=== PATIENT | male | born 1930 | race Caucasian/White ===

== ENCOUNTER → 2017-04-03 | Outpatient (CLI) | payer MEDICARE, OTHER ==
[~2017-04-03] MED LIST: ACET600C6 PO; ALBU18HF INH; ATOR20TA9 PO; CHOL100012 PO; CHRO200T2 PO; CRAN500T2 PO; FLAX1000 PO; FLUT1DIS3 INH; GLUC-149 PO; LACT1CAP35 PO; MAGN400C PO; METH500C3 TP; MILK500C PO; NEBI10TA3 PO; NETTLE PO; OLME1TAB34 PO; POTA10TA31 PO; QUERCETIN PO; TURM1POW2 PO; UBID100C24 PO; VIT1TABL32 PO; VITA100T4 PO; VITA150T PO; [UNRECOGNIZED DRUG - CODE] PO
[2017-04-03 16:22] LABS: MEAN CORPUSCULAR HEMOGLOBIN 29.9 pg (27.5-34.5); MEAN CORPUSCULAR VOLUME 90.6 fL (81-97); MEAN PLATELET VOLUME 8.1 fL (7.4-10.4); PLATELET COUNT 246 x10^3/uL (130-400); RED BLOOD COUNT 4.85 x10^6/uL (4.38-5.82); RED CELL DISTRIBUTION WIDTH 16.1 % (9.4-14.8)
[2017-04-03 16:28] LABS: MICROSCOPIC AUTO
[2017-04-03 16:30] LABS: ANION GAP 8 mmol/L (5-15); CALCIUM 9.5 mg/dL (8.5-10.1); CHLORIDE 104 mmol/L (98-107); CREATININE 0.84 mg/dL (0.7-1.3)
[2017-04-03 16:31] LABS: CULTURE INDICATED? NO
[2017-04-03 18:48] LABS: MD YES
[2017-04-03 18:54] LABS: EOS#(MANUAL) 0.13 x10^3/uL (0.0-0.4); EOS% (MANUAL) 1 % (1-7); LYMPHS% (MANUAL) 31 % (22-44); MONOS#(MANUAL) 0.52 x10^3/uL (0.3-2.7); MONOS% (MANUAL) 4 % (2-9); REACTIVE LYMPHS # (MANUAL) 1.29 x10^3/uL (0-0); REACTIVE LYMPHS % (MANUAL) 10 % (0-0); SEG#(MANUAL) 4.13 x10^3/uL (1.8-6.8); SEGS% (MANUAL) 32 % (42-75)
[2017-04-03 18:56] LABS: OTHER CELLS # (MANUAL) 2.84 x10^3/uL (0-0); OTHER CELLS % (MANUAL) 22 % (0-0)
[2017-04-03 19:01] LABS: <PLATELET ESTIMATE> ADEQUATE; <PLT MORPHOLOGY> NORMAL PLT MORPH; ANISOCYTOSIS 1+; SMUDGE CELLS 1+
== END ==
LOC: STAR 14:37
PROVIDERS: ATTEND Orthopaedic Surgery
DX: Z01.818 Encounter for other preprocedural examination (principal); M17.11 Unilateral primary osteoarthritis, right knee; R94.31 Abnormal electrocardiogram [ECG] [EKG]
CPT/HCPCS: 36415; 80048; 81001; 85025; 87081; 93005

== ENCOUNTER 2017-04-10 06:43 | Inpatient (IN) | payer MEDICARE, OTHER ==
[~2017-04-10] VITALS: Ht 177.8 cm; Wt 82.6 kg
[~2017-04-10 06:43] MED LIST changes: +EPINEPHRINE 1 MG/ML, 1ML ONE; +KETOROLAC 60 MG/2 ML ONE; +ROPIvacaine/PF 0.2%, 20 ML ONE; +SODIUM CHLORIDE 0.9% 100 ML ONE; +TRANEXAMIC ACID 100 MG/ML, 10ML ONE
[2017-04-10] MEDS ORDERED: LACTATED RINGERS 1,000 ML IV SCH (07:08)
[2017-04-10 07:54] VITALS: BP 145/73
[2017-04-10 07:58] LABS: MEAN CORPUSCULAR HGB CONC 33.4 g/dL (33.2-36.2); MEAN CORPUSCULAR VOLUME 89.6 fL (81-97); MEAN PLATELET VOLUME 7.8 fL (7.4-10.4); PLATELET COUNT 222 x10^3/uL (130-400); RED BLOOD COUNT 4.64 x10^6/uL (4.38-5.82)
[2017-04-10] MEDS ORDERED: TRAM50TA2 PO (08:06)
[2017-04-10] MEDS ORDERED: GABA300C10 PO (08:06)
[2017-04-10] MEDS ORDERED: PROPOFOL 50 ML ONE (09:08)
[2017-04-10] MEDS ORDERED: FENTANYL PF 100 MCG/2ML ONE (09:08)
[2017-04-10] MEDS ORDERED: MIDAZOLAM 1 MG/ML, 2ML ONE (09:09)
[2017-04-10 09:28] LABS: EOS#(MANUAL) 0.52 x10^3/uL (0.0-0.4); EOS% (MANUAL) 4 % (1-7); LYMPHS% (MANUAL) 71 % (22-44); MD YES; MONOS#(MANUAL) 0.26 x10^3/uL (0.3-2.7); MONOS% (MANUAL) 2 % (2-9); SEG#(MANUAL) 3.01 x10^3/uL (1.8-6.8); SEGS% (MANUAL) 23 % (42-75)
[2017-04-10 09:29] LABS: SMUDGE CELLS 1+
[2017-04-10 09:31] LABS: <RBC MORPHOLOGY> NORMAL
[2017-04-10 09:32] LABS: <PLATELET ESTIMATE> ADEQUATE; <PLT MORPHOLOGY> NORMAL PLT MORPH
[2017-04-10] MEDS ORDERED: OXYcodone 5 MG/5 ML ORAL.SOL UDC PO PRN (10:00)
[2017-04-10] MEDS ORDERED: ONDANSETRON 2MG/ML, 2ML IVPush PRN (10:00)
[2017-04-10] MEDS ORDERED: LABETALOL 5MG/ML, 20ML IV PRN (10:00)
[2017-04-10] MEDS ORDERED: PROMETHAZINE 25 MG/ML, 1ML IV PRN (10:00)
[2017-04-10] MEDS ORDERED: HYDROmorphone 1 MG/ML, 1ML IV PRN ×2 (10:00→12:30)
[2017-04-10] MEDS ORDERED: FENTANYL PF 100 MCG/2ML IV PRN (10:00)
[2017-04-10] MEDS ORDERED: ACETAMINOPHEN 325 MG TABLET PO PRN (10:00)
[2017-04-10] MEDS ORDERED: ALBUTEROL/IPRATROPIUM 2.5MG/0.5MG, 3 ML NPPB PRN (10:00)
[2017-04-10] MEDS ORDERED: MEPERIDINE/PF 25MG/0.5ML IVPush PRN (10:00)
[2017-04-10] MEDS ORDERED: DIAZEPAM 5 MG/ML, 2ML IVPush PRN (10:00)
[2017-04-10] MEDS ORDERED: hydrALAzine 20 MG/ML, 1ML IV PRN (10:00)
[2017-04-10] MEDS ORDERED: MIDAZOLAM 1 MG/ML, 2ML IV PRN (10:00)
[2017-04-10] MEDS ORDERED: ONDANSETRON 2MG/ML, 2ML ONE ×2 (10:32→11:11)
[2017-04-10] MEDS ORDERED: DEXAMETHASONE 4 MG/ML, 1ML ONE ×2 (10:32→11:11)
[2017-04-10] MEDS ORDERED: CEFAZOLIN 1,000 MG ONE ×2 (10:32→11:11)
[2017-04-10] MEDS ORDERED: PHENYLEPHRINE 10 MG/ML ONE (10:32)
[2017-04-10] MEDS ORDERED: EPHEDRINE 50 MG/ML, 1ML ONE ×2 (10:32→11:11)
[2017-04-10] MEDS ORDERED: PROPOFOL 10 MG/ML, 20ML ONE (11:11)
[2017-04-10] MEDS ORDERED: ALUMINUM/MAG/SIMETHICONE 30 ML UDC PO PRN (12:30)
[2017-04-10] MEDS ORDERED: PROMETHAZINE 25 MG/ML, 1ML IM PRN (12:30)
[2017-04-10] MEDS ORDERED: DIAZEPAM 5 MG TABLET PO PRN (12:30)
[2017-04-10] MEDS ORDERED: TRANEXAMIC ACID 1,000 MG in SODIUM CHLORIDE 0.9% 100 ML IVPB ONE (12:30)
[2017-04-10] MEDS ORDERED: OXYcodone IR 5MG TABLET PO PRN (12:30)
[2017-04-10] MEDS: ACETAMINOPHEN 650 MG/20.3 ML UDC PO SCH ×2 (12:30→21:38)
[2017-04-10] MEDS ORDERED: DIPHENHYDRAMINE 50 MG CAPSULE PO PRN (12:30)
[2017-04-10] MEDS ORDERED: BISACODYL 10 MG SUPP PR PRN (12:30)
[2017-04-10] MEDS ORDERED: MAGNESIUM HYDROXIDE 8%, 30ML UDC PO PRN (12:30)
[2017-04-10] MEDS ORDERED: PROMETHAZINE 12.5 MG SUPP PR PRN (12:30)
[2017-04-10] MEDS ORDERED: ONDANSETRON 2MG/ML, 2ML IV PRN (12:30)
[2017-04-10] MEDS: TAMSULOSIN 0.4 MG CAP.ER.24H PO SCH (12:30)
[2017-04-10] MEDS ORDERED: LORazepam 1MG TABLET PO PRN (12:30)
[2017-04-10] MEDS ORDERED: SENNA/DOCUSATE TABLET PO PRN (12:30)
[2017-04-10] MEDS ORDERED: ONDANSETRON 4 MG TABLET PO PRN (12:30)
[2017-04-10] MEDS ORDERED: OXYcodone 5 MG/5 ML ORAL.SOL UDC ONE (13:22)
[2017-04-10] MEDS ORDERED: ACETAMINOPHEN 650 MG/20.3 ML UDC ONE (13:22)
[2017-04-10] MEDS ORDERED: HYDROmorphone 2 MG/ML, 1ML ONE (13:26)
[2017-04-10] MEDS ORDERED: ALBUTEROL INH PRN (14:30)
[2017-04-10] MEDS: D5%-0.45% NACL 1,000 ML IV SCH (14:54)
[2017-04-10] MEDS: ASPIRIN 81 MG TABLET EC PO SCH (17:51)
[2017-04-10] MEDS: CEFAZOLIN PMX 2GM/50ML 50 ML IVPB SCH (17:51)
[2017-04-10 19:39] VITALS: BP 114/60
[2017-04-10] MEDS ORDERED: ATORVASTATIN 20 MG TABLET PO SCH (21:00)
[2017-04-10] MEDS ORDERED: ACETAMINOPHEN 500 MG TABLET ONE (21:34)
[2017-04-10] MEDS ORDERED: NEBIVOLOL HCL 5 MG TABLET PO SCH (21:35)
[2017-04-10] MEDS: DOCUSATE 100 MG CAPSULE PO SCH (21:38)
[2017-04-10 23:57] VITALS: BP 110/51
[2017-04-11] MEDS: D5%-0.45% NACL 1,000 ML IV SCH ×2 (02:21→08:28)
[2017-04-11] MEDS: CEFAZOLIN PMX 2GM/50ML 50 ML IVPB SCH (02:22)
[2017-04-11 05:12] VITALS: BP 92/48
[2017-04-11] MEDS: ACETAMINOPHEN 500 MG TABLET PO SCH ×2 (05:41→13:38)
[2017-04-11] MEDS: ASPIRIN 81 MG TABLET EC PO SCH (05:41)
[2017-04-11] MEDS ORDERED: NEBIVOLOL HCL 5 MG TABLET PO SCH (06:00)
[2017-04-11] MEDS ORDERED: DEXAMETHASONE 4 MG/ML, 1ML IVPush SCH (06:00)
[2017-04-11 07:11] VITALS: BP 112/55
[2017-04-11] MEDS: TAMSULOSIN 0.4 MG CAP.ER.24H PO SCH (08:17)
[2017-04-11] MEDS: DOCUSATE 100 MG CAPSULE PO SCH (08:17)
[2017-04-11] MEDS ORDERED: ACETYLCYSTEINE 600 MG CAPSULE PO SCH (09:00)
[2017-04-11] MEDS ORDERED: FLUTICASONE/VILANTEROL 100-25MCG/INH INH SCH (09:00)
[2017-04-11] MEDS ORDERED: POTASSIUM CHLORIDE 10 MEQ TABLET.ER PO SCH (09:00)
[2017-04-11] MEDS ORDERED: CHOLECALCIFEROL 1,000 UNIT TABLET PO SCH (09:00)
[2017-04-11] MEDS ORDERED: MAGNESIUM OXIDE 400 MG TABLET PO SCH (09:00)
[2017-04-11 10:42] VITALS: BP 134/78
[2017-04-11] MEDS ORDERED: KETOROLAC 30 MG/1 ML IV SCH (12:30)
[2017-04-11 13:20] VITALS: BP 105/55
[2017-04-11] MEDS ORDERED: OXYC5CAP2 PO (14:21)
== END 2017-04-11 14:37 | disposition home or self-care (01) | DRG 470 ==
LOC: ORIP 06:43 → 4NOR 13:49 → DCLOUNGE 04-11 14:18
PROVIDERS: ADMIT Orthopaedic Surgery; ATTEND Orthopaedic Surgery
PROC: 0SRC0J9 Replacement of Right Knee Joint with Synthetic Substitute, Cemented, Open Approach (ICD-10-PCS; principal; 2017-04-10 09:45)
DX: M17.11 Unilateral primary osteoarthritis, right knee (principal); E78.5 Hyperlipidemia, unspecified; I10 Essential (primary) hypertension; J45.909 Unspecified asthma, uncomplicated
CPT/HCPCS: 36415; 85018; 85025; C1713; J0171; J0690; J1100; J1170; J1885; J2250; J2405; J2704; J2795; J3010; C1776; J2370; J7120

== ENCOUNTER → 2017-09-11 | Outpatient (CLI) | payer MEDICARE, OTHER ==
[~2017-09-11] MED LIST changes: -EPINEPHRINE 1 MG/ML, 1ML ONE; +GABA300C10 PO; -KETOROLAC 60 MG/2 ML ONE; +OXYC5CAP2 PO; -ROPIvacaine/PF 0.2%, 20 ML ONE; -SODIUM CHLORIDE 0.9% 100 ML ONE; +TRAM50TA2 PO; -TRANEXAMIC ACID 100 MG/ML, 10ML ONE
[2017-09-11 10:46] LABS: CULTURE INDICATED? YES; MICROSCOPIC AUTO
[2017-09-11 10:47] LABS: MEAN CORPUSCULAR HEMOGLOBIN 28.8 pg (27.5-34.5); MEAN CORPUSCULAR HGB CONC 32.8 g/dL (33.2-36.2); MEAN CORPUSCULAR VOLUME 87.8 fL (81-97); MEAN PLATELET VOLUME 7.7 fL (7.4-10.4); PLATELET COUNT 242 x10^3/uL (130-400); RED BLOOD COUNT 4.59 x10^6/uL (4.38-5.82); RED CELL DISTRIBUTION WIDTH 17.8 % (9.4-14.8)
[2017-09-11 10:48] LABS: MD YES
[2017-09-11 10:57] LABS: ANION GAP 6 mmol/L (5-15); CALCIUM 9.2 mg/dL (8.5-10.1); CHLORIDE 105 mmol/L (98-107); CREATININE 0.82 mg/dL (0.7-1.3)
[2017-09-11 11:07] LABS: BAND#(MANUAL) 0.24 x10^3/uL; BANDS%(MANUAL) 2 % (0-7); EOS#(MANUAL) 0.24 x10^3/uL (0.0-0.4); EOS% (MANUAL) 2 % (1-7); LYMPH#(MANUAL) 6.47 x10^3/uL (1-3.4); LYMPHS% (MANUAL) 53 % (22-44); MONOS#(MANUAL) 0.37 x10^3/uL (0.3-2.7); MONOS% (MANUAL) 3 % (2-9); REACTIVE LYMPHS # (MANUAL) 0.73 x10^3/uL (0-0); REACTIVE LYMPHS % (MANUAL) 6 % (0-0); SEG#(MANUAL) 4.15 x10^3/uL (1.8-6.8); SEGS% (MANUAL) 34 % (42-75)
[2017-09-11 11:08] LABS: <PLATELET ESTIMATE> ADEQUATE; <PLT MORPHOLOGY> NORMAL PLT MORPH; POLYCHROMASIA 1+; SMUDGE CELLS 1+
== END | disposition home or self-care (01) ==
LOC: STAR 09:32
PROVIDERS: ATTEND Orthopaedic Surgery
DX: Z01.818 Encounter for other preprocedural examination (principal); I45.10 Unspecified right bundle-branch block; M17.12 Unilateral primary osteoarthritis, left knee
CPT/HCPCS: 36415; 80048; 81001; 85025; 87081; 87086; 93005

== ENCOUNTER 2017-09-25 05:46 | Inpatient (IN) | payer MEDICARE, OTHER ==
[~2017-09-25] VITALS: Ht 177.8 cm; Wt 85.7 kg
[2017-09-25] MEDS ORDERED: LACTATED RINGERS 1,000 ML IV SCH (06:10)
[2017-09-25 06:15] VITALS: BP 144/69
[2017-09-25] MEDS ORDERED: CEFAZOLIN 1,000 MG ONE ×2 (06:30)
[2017-09-25] MEDS ORDERED: PROPOFOL 10 MG/ML, 20ML ONE ×2 (06:30)
[2017-09-25] MEDS ORDERED: KETOROLAC 60 MG/2 ML ONE (06:35)
[2017-09-25] MEDS ORDERED: ROPIvacaine/PF 0.2%, 20 ML ONE (06:35)
[2017-09-25] MEDS ORDERED: SODIUM CHLORIDE 0.9% 100 ML ONE (06:35)
[2017-09-25] MEDS ORDERED: EPINEPHRINE 1 MG/ML, 1ML ONE (06:35)
[2017-09-25] MEDS ORDERED: FENTANYL PF 100 MCG/2ML ONE ×2 (06:35)
[2017-09-25] MEDS ORDERED: TRANEXAMIC ACID 100 MG/ML, 10ML ONE ×2 (06:36→06:51)
[2017-09-25] MEDS ORDERED: ONDANSETRON 2MG/ML, 2ML ONE (08:15)
[2017-09-25] MEDS ORDERED: ALBUTEROL SULFATE 2.5 MG/3 ML NPPB PRN (08:30)
[2017-09-25] MEDS ORDERED: ONDANSETRON ODT 8 MG PO PRN (08:30)
[2017-09-25] MEDS ORDERED: OXYcodone 5 MG/5 ML ORAL.SOL UDC PO PRN (08:30)
[2017-09-25] MEDS ORDERED: EPHEDRINE 50 MG/ML, 1ML IVPush PRN (08:30)
[2017-09-25] MEDS ORDERED: hydrALAzine 20 MG/ML, 1ML IV PRN (08:30)
[2017-09-25] MEDS ORDERED: METOPROLOL 1 MG/ML, 5ML IV PRN (08:30)
[2017-09-25] MEDS ORDERED: LABETALOL 5MG/ML, 20ML IV PRN (08:30)
[2017-09-25] MEDS ORDERED: MORPHINE SULFATE 4 MG/ML, 1ML IVPush PRN (08:30)
[2017-09-25] MEDS ORDERED: PROMETHAZINE 25 MG/ML, 1ML IV PRN (08:30)
[2017-09-25] MEDS ORDERED: ACETAMINOPHEN 325 MG TABLET PO PRN (08:30)
[2017-09-25] MEDS ORDERED: FENTANYL PF 100 MCG/2ML IV PRN (08:30)
[2017-09-25] MEDS ORDERED: PROMETHAZINE 25 MG/ML, 1ML IM PRN (09:00)
[2017-09-25] MEDS ORDERED: ONDANSETRON 4 MG TABLET PO PRN (09:00)
[2017-09-25] MEDS ORDERED: MAGNESIUM HYDROXIDE 8%, 30ML UDC PO PRN (09:00)
[2017-09-25] MEDS ORDERED: PROMETHAZINE 12.5 MG SUPP PR PRN (09:00)
[2017-09-25] MEDS ORDERED: ALUMINUM/MAG/SIMETHICONE 30 ML UDC PO PRN (09:00)
[2017-09-25] MEDS ORDERED: morphine SULFATE 10 MG/ML, 1ML IV PRN (09:00)
[2017-09-25] MEDS ORDERED: ONDANSETRON 2MG/ML, 2ML IV PRN (09:00)
[2017-09-25] MEDS ORDERED: DIAZEPAM 5 MG TABLET PO PRN (09:00)
[2017-09-25] MEDS ORDERED: DIPHENHYDRAMINE 25 MG CAPSULE PO PRN (09:00)
[2017-09-25] MEDS ORDERED: OXYcodone IR 5MG TABLET PO PRN (09:00)
[2017-09-25] MEDS ORDERED: SENNA/DOCUSATE TABLET PO PRN (09:00)
[2017-09-25] MEDS ORDERED: BISACODYL 10 MG SUPP PR PRN (09:00)
[2017-09-25] MEDS ORDERED: TRANEXAMIC ACID 1,000 MG in SODIUM CHLORIDE 0.9% 100 ML IVPB ONE (09:30)
[2017-09-25] MEDS: ACETAMINOPHEN 650 MG/20.3 ML UDC PO SCH ×2 (11:44→20:31)
[2017-09-25] MEDS: TAMSULOSIN 0.4 MG CAP.ER.24H PO SCH (11:45)
[2017-09-25] MEDS: DOCUSATE 100 MG CAPSULE PO SCH ×2 (11:45→20:32)
[2017-09-25 13:18] VITALS: BP 114/74
[2017-09-25] MEDS: D5%-0.45% NACL 1,000 ML IV SCH ×2 (14:20→18:42)
[2017-09-25] MEDS: CEFAZOLIN PMX 2GM/50ML 50 ML IVPB SCH ×2 (15:13→22:58)
[2017-09-25] MEDS: ASPIRIN 81 MG TABLET EC PO SCH (17:49)
[2017-09-25 19:00] VITALS: BP 113/61
[2017-09-25 20:29] VITALS: BP 113/59
[2017-09-25] MEDS ORDERED: NEBIVOLOL HCL 5 MG TABLET PO SCH (21:00)
[2017-09-25 23:42] VITALS: BP 99/55
[2017-09-26] MEDS: ACETAMINOPHEN 650 MG/20.3 ML UDC PO SCH ×2 (04:00→08:36)
[2017-09-26 04:25] VITALS: BP 106/51
[2017-09-26] MEDS: D5%-0.45% NACL 1,000 ML IV SCH (04:42)
[2017-09-26] MEDS ORDERED: DEXAMETHASONE 4 MG/ML, 1ML IVPush SCH (06:00)
[2017-09-26] MEDS: ASPIRIN 81 MG TABLET EC PO SCH (06:04)
[2017-09-26 06:30] VITALS: BP 100/55
[2017-09-26] MEDS: TAMSULOSIN 0.4 MG CAP.ER.24H PO SCH (08:35)
[2017-09-26] MEDS: DOCUSATE 100 MG CAPSULE PO SCH (08:35)
[2017-09-26] MEDS ORDERED: TRIBENZOR HOMEMEDPO SCH (09:00)
[2017-09-26] MEDS ORDERED: POTASSIUM CHLORIDE 10 MEQ TABLET.ER PO SCH (09:00)
== END 2017-09-26 11:50 | disposition home or self-care (01) | DRG 470 ==
LOC: OUT 05:46 → EDSTATUS 07:30 → ORIP 08:42 → 4NOR 10:15 → DCLOUNGE 09-26 11:38
PROVIDERS: ADMIT Orthopaedic Surgery; ATTEND Orthopaedic Surgery
PROC: 0SRD0J9 Replacement of Left Knee Joint with Synthetic Substitute, Cemented, Open Approach (ICD-10-PCS; principal; 2017-09-25 07:30)
DX: M17.12 Unilateral primary osteoarthritis, left knee (principal); I10 Essential (primary) hypertension; E78.5 Hyperlipidemia, unspecified; J45.909 Unspecified asthma, uncomplicated; Z88.2 Allergy status to sulfonamides; Z88.8 Allergy status to other drugs, medicaments and biological substances; Z91.013 Allergy to seafood
CPT/HCPCS: 36415; 85018; C1713; J0171; J0690; J1100; J1885; J2405; J2704; J2795; J3010; C1776; J7120